=== PATIENT | female | born 1955 | race Caucasian/White ===

== ENCOUNTER 2019-01-29 06:05 | Inpatient (IN) | payer BC ==
--- NOTE | 2019-01-19 16:00 | HP ---
PREOPERATIVE HISTORY AND PHYSICAL: DATE OF ADMISSION/SURGERY: 01/29/19 SURGEON: Dr. Jazmine Paulino.* (DICTATED BY JOANN KENT) PROCEDURE: Left total hip arthroplasty. CHIEF COMPLAINT: Left hip pain. HISTORY OF PRESENT ILLNESS: Ms. Arriaga is a 63-year-old female with worsening left hip pain over the last 10 years. The pain is in the left groin and lateral hip and sometimes deep to the buttock, she describes it as a 6/10 pain. She has difficulty ambulating more than 2 blocks as well as severe pain with bending. She has tried anti-inflammatories, pain medication, physical therapy and other conservative treatments without relief and is seeking surgical intervention with Dr. Paulino at this time. PAST MEDICAL HISTORY: Hypertension, osteoarthritis, diverticulitis, GERD, hypothyroidism, and type 2 diabetes. She denies history of DVT or pulmonary embolism. PAST SURGICAL HISTORY: x2, gastric bypass, colon resection for diverticulitis and reverse colostomy. She denies anesthetic complications from these procedures. CURRENT MEDICATIONS: 1. Omeprazole 20 mg 1 tab by mouth daily. 2. Premier Thyroid 25 mg 1 tab by mouth daily. 3. Tramadol HCl 50 mg 1 to 2 tabs by mouth every 6 hours p.r.n. pain. 4. Gabapentin 100 mg 1 capsule 3 times daily. 5. Metoprolol succinate ER 25 mg 1 tab by mouth daily. 6. Metformin HCl ER 500 mg 1 tab by mouth daily. ALLERGIES: She is allergic to IV METRONIDAZOLE. FAMILY HISTORY: Positive for diabetes and heart disease, but no cancer. SOCIAL HISTORY: She lives with her partner, who will care for her postoperatively. 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 She consumed 2 alcoholic beverages per week and denies tobacco or recreational drug use. She is normally active with walking and gardening. REVIEW OF SYSTEMS: Fourteen systems were reviewed with the patient today and are positive for her left hip pain, but all other systems are negative today. PHYSICAL EXAMINATION GENERAL: She is a well-developed, well-nourished female, seated on exam table, in no acute distress, with appropriate affect. VITAL SIGNS: Height 60 inches, weight 155 pounds. Pulse is 66, blood pressure 132/80. HEENT: Normocephalic, atraumatic. Hearing and vision are grossly intact with extraocular movements intact. NECK: The trachea is midline and symmetrical. CHEST: Lungs are clear to auscultation. No wheezes, rales, or rhonchi appreciated. CARDIO: Regular rate and rhythm. Normal S1, S2. No murmurs, rubs, or gallops noted. ABDOMEN: Nondistended, nontender. Bowel sounds present. GENITOURINARY: Deferred. MUSCULOSKELETAL: Left lower extremity: Skin is pink, dry, and intact without abrasions or open wounds. She flexes the hip to 80 degrees with groin pain. She lacks 10 degrees from neutral and has no internal rotation. She has 10 degrees of external rotation with severe groin pain. She has 5/5 strength against resistance in 4 planes in the left ankle with intact sensation and a 2+ posterior tibialis pulse. IMAGING: X-rays perform previously are reviewed and show chqu-ct-uvur osteoarthritis with obliteration of the joint space, osteophyte formation and subchondral sclerosis. ASSESSMENT: Left hip severe end-stage arthritis. PLAN: Left total hip arthroplasty with Dr. Paulino. The patient's questions were answered and she would like to proceed. Dr. Paulino reviewed the potential risks and complications during today's visit. The patient will follow up postoperatively and pain medication will be dispensed postoperatively. JOANN KENT [id number]/CPS #: [id number] MTDD
[~2019-01-29 06:05] MED LIST: Buffered Lidocaine 1% SYRIN* 1 ML/SYRINGE INTRADERM ONE; Lactated Ringers 1000 ML Bag* 1,000 ML IV SCH; Tranexamic Acid 1,000 MG in NS 0.9% 50 ML* (outpatient use) IV SCH
--- OUTSIDE RECORDS SUMMARY | 2019-01-29 06:09 | XMS REPORT | Continuity of Care Document ---
:1955 External Reference #:[id number] Author Name Jazmine Paulino M.D. (transmitted by agent of provider Lexi Gusman) Address [address] [place] [address] [place] [address] Care Team Providers Name Role Phone Luis Armando Lakhani MD - Internal Care Team Information [employer] [phone] Medicine Problems Active Problems Provider Date Localized, primary osteoarthritis of the pelvic Jazmine Paulino M.D. Onset: 06/2018 region and thigh Social History Type Date Description Comments Sex Unknown ETOH Use Occasionally consumes alcohol Tobacco Use Start: Unknown Patient has never smoked Smoking Status Reviewed: 01/16/19 Patient has never smoked Exercise Type/Frequency Exercises regularly Allergies, Adverse Reactions, Alerts Active Allergies Reaction Severity Comments Date Metronidazole 12/05/2018 Inactive Allergies NKDA 04/17/2016 Medications Active Medications SIG Qnty Indications Ordering Provider Date Omeprazole 1 by mouth every Unknown 20mg Capsules day DR Devine Thyroid 1 by mouth every Unknown 25mg day take with Tablets the; elkin palomares Tramadol HCL 1-2 tablets by Unknown 50mg Tablets mouth every 6 hours as needed pain Gabapentin 1 capsule three Unknown 100mg Capsules times daily. Metoprolol Succinate 1 by mouth every Unknown ER day 25mg Tablets ER 24HR Metformin HCL ER (Mod) 1 by mouth every Unknown day 500mg Tablets ER 24HR Immunizations Description No Information Available Vital Signs Date Vital Result Comment 01/16/2019 1:53pm Height 60 inches 5'0" Weight 155.00 lb Heart Rate 66 /min BP Systolic 132 mmHg BP Diastolic 80 mmHg Body Temperature 97.3 F Pain Level 6 BMI (Body Mass Index) 30.3 kg/m2 12/05/2018 3:19pm Height 60 inches 5'0" Weight 154.00 lb Heart Rate 78 /min BP Systolic 130 mmHg BP Diastolic 82 mmHg Respiratory Rate 18 /min Pain Level 6 BMI (Body Mass Index) 30.1 kg/m2 Results Test Date Facility Test Result H/L Range Note Urinalysis Profile 01/16/2019 [facility] Urine Color Yellow [address] [place] [address] [phone] Urine Appearance Cloudy Urine Specific Wallace 1.012 Normal 1.010-1.030 Urine pH 6.0 Normal 5-9 Urine Urobilinogen Negative Negative Urine Ketones Negative Negative Urine Protein Negative Negative Urine Leukocytes Negative Negative Urine Blood Negative Negative Urine Nitrite Negative Negative Urine Bilirubin Negative Negative Urine Glucose Negative Negative CBC Auto 01/16/2019 [facility] White Blood 5.4 10^3/uL Normal 3.5-10.[address] [place] [address] [phone] Red Blood Count 4.56 10^6/uL Normal 3.70-4.87 Hemoglobin 12.0 g/dL Normal 12.0-16.0 Hematocrit 37 % Normal 35-47 Mean Corpuscular Volume 81 fL Normal 80-97 Mean Corpuscular Hemoglobin 26 pg Low 27-31 Mean Corpuscular HGB Conc 32 g/dL Normal 31-36 Red Cell Distribution Width 14 % Normal 10-15 Platelet Count 270 10^3/uL Normal 150-450 Mean Platelet Volume 8.7 fL Normal 7.4-10.4 Abs Neutrophils 3.3 10^3/uL Normal 1.5-7.7 Abs Lymphocytes 1.6 10^3/uL Normal 1.0-4.8 Abs Monocytes 0.4 10^3/uL Normal 0-0.8 Abs Eosinophils 0.1 10^3/uL Normal 0-0.6 Abs Basophils 0.0 10^3/uL Normal 0-0.2 Abs Nucleated RBC 0.0 10^3/uL Granulocyte % 61.0 % Lymphocyte % 28.8 % Monocyte % 7.3 % Eosinophil % 2.4 % Basophil % 0.5 % Nucleated Red Blood Cells % 0.1 Inr/Protime 01/16/2019 [facility] Inr 0.92 Normal 0.82-1.[address] [place] [address] [phone] Laboratory test 01/16/2019 [facility] Partial 31.3 Normal 26.0 -38.[address] [address] Time PTT [phone] Comp Metabolic 01/16/2019 [facility] Sodium 138 mmol/L Normal 135-[address] [place] [address] [phone] Potassium 4.0 mmol/L Normal 3.5-5.0 Chloride 102 mmol/L Normal 101-111 Co2 Carbon Dioxide 31 mmol/L Normal 22-32 Anion Gap 5 mmol/L Normal 2-11 Glucose 126 mg/dL High 70-100 Blood Urea Nitrogen 10 mg/dL Normal 6-24 Creatinine 0.64 mg/dL Normal 0.51-0.95 BUN/Creatinine Ratio 15.6 Normal 8-20 Calcium 9.6 mg/dL Normal 8.6-10.3 Total Protein 6.3 g/dL Low 6.4-8.9 Albumin 4.1 g/dL Normal 3.2-5.2 Globulin 2.2 g/dL Normal 2-4 Albumin/Globulin Ratio 1.9 Normal 1-3 Total Bilirubin 0.30 mg/dL Normal 0.2-1.0 Alkaline Phosphatase 69 U/L Normal 34-104 Alt 18 U/L Normal 7-52 Ast 15 U/L Normal 13-39 Egfr Non- 93.7 >60 Egfr 113.4 >60 2 Type & Screen 01/16/2019 [facility] Patient Blood Type A Positive [address] [place] [address] [phone] Antibody Screen NEGATIVE Urine Culture And 01/16/2019 [facility] Urine Culture SEE RESULT [address] [place] [address] [phone] 1 Standard intensity warfarin therapeutic range: 2.0-3.0 High intensity warfarin therapeutic range: 2.5-3.5 2 Because ethnic data is not always readily available, this report includes an eGFR for both -Americans and non- Americans. The National Kidney Disease Education Program (NKDEP) does not endorse the use of the MDRD equation for patients that are not between the ages of 18 and 70, are , have extremes of body size, muscle mass, or nutritional status, or are non- or non-. According to the National Kidney Foundation, irrespective of diagnosis, the stage of the disease is based on the level of kidney function: Stage Description GFR(mL/min/1.73 m(2)) 1 Kidney damage with normal or decreased GFR 90 2 Kidney damage with mild decrease in GFR 60-89 3 Moderate decrease in GFR 30-59 4 Severe decrease in GFR 15-29 5 Kidney failure <15 (or dialysis) 3 SEE RESULT BELOW Name: KETTY ARRIAGA : [address]: Jazmine Paulino MD Acct: [id number] Unit: [id number] AGE: 63 Location: [facility] Re01/16/19 SEX: F Status: REG REF SPEC: [id number] HERBIE: 01/16/19-[address] [facility] [address]: Jazmine Paulino MD REQ: [id number] RECD: 01/16/19 STATUS: ANITRA MARIA DR: Luis Armando Lakhani MD _ SOURCE: URINE SPDESC: ORDERED: Urine Culture QUERIES: Urine Source: Random Procedure Result Reported Site Urine Culture Final 01/17/19- 1614 ML No Growth (<1,000 CFU/mL) * ML - Main Lab . END OF REPORT DEPARTMENT OF PATHOLOGY, [address] [place] [address] Venkata Bhatt M.D. Director [facility] # [id number] Procedures Date Code Description Status 11/10/2010 [id number] Colonoscopy Completed Medical Devices Description No Information Available Encounters Type Date Location Provider Dx Diagnosis Office Visit 12/05/2018 Orthopedic Jazmine Paulino, M25.552 Pain in left hip 2:[facility] 6.12 Unilateral primary osteoarthritis, left hip Assessments Date Code Description Provider 01/16/2019 Esther5.552 Pain in left hip Jazmine Paulino M.D. 01/16/2019 M16.12 Unilateral primary osteoarthritis, left hip Jazmine Paulino M.D. 12/08/2018 M25.552 Pain in left hip Jazmine Paulino M.D. 12/08/2018 M16.12 Unilateral primary osteoarthritis, left hip Jazmine Paulino M.D. 12/05/2018 M25.552 Pain in left hip Jazmine Paulino M.D. 12/05/2018 M16.12 Unilateral primary osteoarthritis, left hip Jazmine Paulino M.D. Plan of Treatment Future Appointment(s):02/09/2019 11:15 am - Jazmine Paulino M.D. at [facility].01/29/2019 8:00 am - ARLEN Garvey at [facility].01/29/2019 8:00 am - Declan Lui PA-C at [facility].01/29/2019 8:00 am - Jazmine Paulino M.D. at [facility].01/16/2019 - Jazmine Paulino M.D.M25.552 Pain in left hipFollow up:Follow up: 10-14 days [id number] Unilateral primary osteoarthritis, left hip Functional Status Description No Information Available Mental Status Description No Information Available Referrals Description No Information Available
--- OUTSIDE RECORDS SUMMARY | 2019-01-29 06:09 | XMS REPORT | Continuity of Care Document ---
:1955 External Reference #:[id number] Author Name Susnaa Rodas Care Team Providers Name Role Phone Luis Armando Lakhani MD Primary Care Physician Unavailable Payers Date Identification Numbers Payment Provider Subscriber Policy Number: [id number] [employer] Ketty Saeed PayID: [id number] [address] [address] [place] [address] Problems Active Problems Provider Date Localized, primary osteoarthritis of the pelvic Jazminecorbin Paulino M.D. Onset: 06/2018 region and thigh Family History Date Family Member(s) Observation Comments General Diabetes General Heart Disease Social History Type Date Description Comments Sex Unknown Lives With Spouse Occupation Currently Working ETOH Use Occasionally consumes alcohol Tobacco Use Start: Unknown Patient has never smoked Smoking Status Reviewed: 12/05/18 Patient has never smoked Exercise Type/Frequency Exercises [...] every Unknown day 500mg Tablets ER 24HR History Medications Thiamine 1 by mouth every day Unknown - 12/04/2018 50mg Capsules Vitamin D3 Complete once daily Unknown - 12/04/2018 Tablets Winifrede-3 1 by mouth qd. Unknown - 12/04/2018 1000mg Capsules Toprol XL 1 by mouth every day Unknown - 12/04/2018 12.5mg Tablets ER 24HR Vital Signs Date Vital Result Comment 12/05/2018 3:19pm Height 60 inches 5'0" Weight 154.00 lb Heart Rate 78 /min BP Systolic 130 mmHg BP Diastolic 82 mmHg Respiratory Rate 18 /min Pain Level 6 BMI (Body Mass Index) 30.1 kg/m2 04/13/2015 8:58am Height 60 inches 5'0" Weight 136.00 lb BMI (Body Mass Index) 26.6 kg/m2 Procedures Date Code Description Status 03/25/2013 01775 EKG, Interpretation Only Completed Plan of Treatment 12/05/2018 - Jazmine Paulino M.D.M25.552 Pain in left hipNew Xrays:Hip Left 2 Views And Pelvis [address] - [address], Ordered: 12/05/18M16.12 Unilateral primary osteoarthritis, left hipFollow up:Follow up: Call Dr. Paulino's Network Systems Operator, [place], to schedule surgery.
[2019-01-29] MEDS ORDERED: ceFAZolin 2 GM PREMIX in ORs 2 GM/50 ML BAG ONE (06:22)
[2019-01-29] MEDS ORDERED: ROPIVACAINE 5 MG/ML 30 ML BTL (0.5%) ONE ×2 (07:07→07:57)
[2019-01-29] MEDS ORDERED: Midazolam* 1 MG/ML 2 ML VIAL (2 MG) ONE (07:08)
[2019-01-29] MEDS ORDERED: Bupivacaine 0.5% SDV PF* 30ML VIAL ONE (07:08)
[2019-01-29] MEDS ORDERED: Dexmedetomidine* 200 MCG/2 ML 2 ML VIAL ONE (07:08)
[2019-01-29] MEDS ORDERED: Lidocaine 2% PF * 5 ML VIAL ONE ×2 (07:08→07:09)
[2019-01-29] MEDS ORDERED: Propofol* 10 MG/ML 20 ML BTL ONE (07:31)
[2019-01-29] MEDS ORDERED: Rocuronium* 10 MG/ML VIAL ONE (07:31)
[2019-01-29] MEDS ORDERED: fentaNYL* 50 MCG/ML 2 ML VIAL (100 MCG VIAL) ONE (07:33)
[2019-01-29] MEDS ORDERED: Dexamethasone IV* 4 MG/ML 1 ML (4 MG) ONE (08:12)
[2019-01-29] MEDS ORDERED: Labetalol IV* 5 MG/ML 20 ML VIAL ONE ×2 (08:32→08:34)
[2019-01-29] MEDS ORDERED: Scopolamine 1.5 mg* PATCH ONE (08:32)
[2019-01-29] MEDS ORDERED: DiMENhydriNATE IV* 50 MG/ML VIAL IV PUSH PRN (09:23)
[2019-01-29] MEDS ORDERED: Naloxone* 0.4 MG/ML 1 ML VIAL IV PRN (09:23)
[2019-01-29] MEDS ORDERED: EPHEDrine (Pressors)* 50 MG/ML VIAL ONE (09:24)
[2019-01-29] MEDS ORDERED: HYDROmorphone INJ1* 1 MG/ML SYRINGE ONE ×2 (09:54→11:56)
[2019-01-29] MEDS ORDERED: Metoclopramide IV* 5 MG/ML 2 ML VIAL ONE (09:56)
[2019-01-29] MEDS ORDERED: Ketorolac INJ* 30 MG/ML 1 ML VIAL ONE (09:56)
[2019-01-29] MEDS ORDERED: Ondansetron INJ* 2 MG/ML VIAL ONE (09:56)
[2019-01-29] MEDS ORDERED: Phenylephrine 10 MG/ML VIAL* 1 ML VIAL ONE ×2 (10:08)
[2019-01-29] MEDS ORDERED: Acetaminophen IV 1GM/100ML * 100 ML ONE (10:15)
[2019-01-29] MEDS ORDERED: Morphine INJ* 2 MG/ML 1 ML SYRINGE (TWO MG - NEW SYRINGE VERSION) IV PRN (10:57)
[2019-01-29] MEDS ORDERED: Polyethylene Glycol 3350* 17 GM PACKET PO PRN (10:57)
[2019-01-29] MEDS ORDERED: diPHENhydraMINE IV* 50 MG/ML 1 ml VIAL (BENADRYL) IV PRN (10:57)
[2019-01-29] MEDS ORDERED: diPHENhydraMINE PO* 25 MG PO PRN (10:57)
[2019-01-29] MEDS ORDERED: Temazepam CAP* 15 MG PO PRN (10:57)
[2019-01-29] MEDS ORDERED: Ondansetron INJ* 2 MG/ML VIAL IV PRN (10:57)
[2019-01-29] MEDS ORDERED: Ondansetron ODT TAB* 4 MG PO PRN (10:57)
[2019-01-29] MEDS ORDERED: traMADol TAB* 50 MG PO PRN (10:57)
[2019-01-29] MEDS ORDERED: Magnesium Hydroxide LIQ* 30 ML UDC PO PRN (10:57)
[2019-01-29] MEDS ORDERED: oxyCODONE/Acetamin 5/325 MG* TAB PO PRN ×2 (10:57)
[2019-01-29] MEDS ORDERED: oxyCODONE TAB* 5 MG TAB ONE (11:05)
[2019-01-29] MEDS: oxyCODONE TAB* 5 MG TAB PO PRN ×4 (11:06→22:21)
[2019-01-29] MEDS: HYDROmorphone INJ1* 1 MG/ML SYRINGE IV PRN ×5 (11:57→12:28)
[2019-01-29] MEDS: Lactated Ringers 1000 ML Bag* 1,000 ML IV SCH ×2 (13:19→23:34)
--- NOTE | 2019-01-29 13:46 | CONS ---
HOSPITAL MEDICINE CONSULTATION REPORT: DATE OF CONSULT: 01/29/19 PROVIDER: Angeles Guzmán NP ATTENDING PHYSICIAN: Dr. Jazmine Paulino. CONSULTING PHYSICIAN: Dr. Ree Pearson (dictated by Angeles Guzmán NP). REASON FOR CONSULT: Co-management of chronic medical conditions. HISTORY OF PRESENT ILLNESS: Ms. Arriaga is a 63-year-old female with a past medical history significant for hypertension, osteoarthritis, GERD, hypothyroid and type 2 diabetes, who [place] [facility] left total hip arthroplasty with Dr. Paulino. Please see dictated H and P from JOANN Whittington for complete details. In brief, the patient had ongoing pain, failed conservative measures, therefore opted for an elective left total hip arthroplasty with Dr. Paulino. In the immediate postoperative period, the patient has no complaints. The patient denies any fever or chills. Denies any chest pain or shortness of breath. Denies any nausea, vomiting, diarrhea, or abdominal pain. Denies any gross hematuria or dysuria. Denies any focal weakness or sensory loss. Denies any rashes, lesions, or open sores. Denies any cough, hemoptysis, or shortness of breath. No nausea, vomiting, diarrhea, or abdominal pain. Denies any dysphagia, arthralgias, myalgias, rashes, lesions , open sores, psychosis, or anxiety. Due to the patient's chronic history of hypertension and hypothyroid and type 2 diabetes, [facility] Medicine was asked to see and consult the patient to help co-manage her chronic medical conditions. PAST MEDICAL HISTORY: Significant for: 1. Hypertension. 2. Osteoarthritis. 3. GERD. 4. Hypothyroid. 5. Type 2 diabetes. PAST SURGICAL HISTORY: 1. x2. 2. Gastric bypass. 3. Colon resection for diverticulitis. 4. Colostomy reversal. HOME MEDICATIONS: Include: 1. Omeprazole 20 mg p.o. daily. 2. [place] Thyroid 25 mg p.o. daily. 3. Tramadol 50 mg p.o. q.6 hours as needed for pain. 4. Gabapentin 100 mg p.o. t.i.d. 5. Metoprolol succinate ER 25 mg p.o. daily. 6. Metformin 500 mg p.o. daily. ALLERGIES: To FLAGYL. FAMILY HISTORY: Mother with a history of a pacemaker. Mother and father with type 2 diabetes. No reported history of cancer. SOCIAL HISTORY: The patient denies tobacco. She does report occasional alcohol use. Denies any illicit drug use. Surrogate decision maker in the event she is unable to make her own decisions is her daughter. She is a full code. REVIEW OF SYSTEMS: An 11-point review of systems was completed. All pertinent positives are mentioned in the HPI, otherwise were negative. PHYSICAL EXAM: General: At this time, Ms. Arriaga is alert and oriented, sitting on the stretcher in PACU, she is well developed, well nourished, she is in no acute distress. Vital Signs: lood pressure 141/67, heart rate 61, respirations 14, O2 saturation 100%, temperature was 97.3. HEENT: Head is atraumatic, normocephalic. Eyes: EOMs are intact. Sclerae anicteric and not pale. Oral mucosa appeared to be moist. Neck is supple. Lungs are clear to auscultation bilaterally. No wheezes, rales, or rhonchi. Cardiac: S1, S2. Regular rate and rhythm. No murmurs, rubs, or gallops. Abdomen is soft and nontender. Bowel sounds are present x4. Extremities: She is able to move all 4 extremities. There is no clubbing or cyanosis. Pedal pulses are +2 bilaterally. Neurologic: She is awake, alert, oriented x3. Speech is clear. Thought process is intact. There are no gross focal deficits. Skin: She does have a dressing that is dry, intact to her left hip. DIAGNOSTIC STUDIES/LAB DATA: CBC from 01/16/19, WBCs are 5.4, RBCs 4.56, hemoglobin 12.0, hematocrit is 37, platelet count was 270. INR was 0.92. BMP: Sodium 138, potassium 4.0, chloride 102, carbon dioxide was 21, anion gap was 5 , BUN was 10, creatinine 0.64, glucose 120. Oiwvm-hf-ozco glucose on 01/29/19 was 246. Calcium 9.6. Total bili was 0.30, ASTs were 15, ALTs were 18, alkaline phosphatase was 69. Urine was within normal limits. IMPRESSION AND PLAN: Ms. Arriaga is a 63-year-old female with a past medical history significant for hypertension, osteoarthritis, gastroesophageal reflux disease, hypothyroid and type 2 diabetes, who presented for an elective left total hip arthroplasty with Dr. Paulino. In the immediate postoperative period, the patient has no complaints. Hospital Medicine was asked to consult to help co-manage her chronic medical conditions. Our recommendations are as follows: 1. Status post left total hip arthroplasty. Management per Orthopedics. PT/ OT per Orthopedics. Bowel regimen per Orthopedics. Pain management per Orthopedics. 2. Type 2 diabetes. Continue metformin. Fingersticks BID 3. Hypertension. The patient should continue on metoprolol 25 mg p.o., hold for systolic blood pressure less than 110. 4. Gastroesophageal reflux disease. She should continue on omeprazole as previously prescribed. 5. FEN. She can have consistent carb diet. 6. Code status. She is a full code. 7. DVT prophylaxis. As per Orthopedics. TIME SPENT: Time spent on this consultation was 45 minutes, greater than half that time was spent at the bedside reviewing the events leading thus far to her hospitalization, performing physical exam, and reviewing my plan of care. I have discussed this with my attending, Dr. Ree Pearson, she is in agreement with my plan. ANGELES GUZMÁN, PATIENT SERVICE ASSOCIATE [id number]/[facility] #: [id number] NORM
[2019-01-29] MEDS ORDERED: Gabapentin CAP(*) 100 MG ONE (14:17)
[2019-01-29] MEDS ORDERED: Acetaminophen TAB* 325 MG ONE (14:17)
[2019-01-29] MEDS: Gabapentin CAP(*) 100 MG PO SCH ×2 (14:19→22:21)
[2019-01-29] MEDS: Acetaminophen TAB* 325 MG PO SCH ×2 (14:19→22:20)
--- NOTE | 2019-01-29 16:13 | PN ---
Progress Note - Progress Note Date of Service: 01/29/19 Note: Patient seen OOB in chair. She still has some numbness in the anterior left thigh, knee wanted to buckle with ambulation in room earlier. Her pain is mild in the knee. She denies dizziness, nausea or vomiting. Left LLE, active dorsiflexion ankle, has sensation in foot and lower leg, still diminished sensation thigh. 2+ pedal pulse s/p LTH arthroplasty.
[2019-01-29] MEDS: ceFAZolin 1 GM ADVAN(*) 1 GM in NS 0.9% 50 ML* 50 ML IVPB SCH (16:57)
--- NOTE | 2019-01-29 19:24 | OP ---
Operative Report - Blank - Operative Report Date of Operation: 01/29/19 Note: MARK KEITH 1955 Date Of Surgery: 01/29/19 Jazmine Paulino MD Rn Intern: Ancelmo DAVID did help throughout the procedure with preparation of the hip, wound retraction, manipulation of the hip, and wound closure. Anesthesiologist: Jarek Sam MD Anesthesia Type: Spinal Preoperative Diagnosis: Left severe degenerative osteoarthritis of the hip Postoperative Diagnosis: As above Procedure Performed: Left Total Hip Arthroplasty Complications: None Specimen: Femoral head and acetabular reamings sent to pathology. Hardware used: This is uncemented [place] total hip arthroplasty hardware for the femur a size 2 accolade II with 127 neck angle femoral component, for the acetabulum a size 48D trident II tritanium cluster hole shell, a 15 mm screw, for the insert a size 32 D trident X3 polyethylene insert, and for the femoral head a size 32 + 0 ceramic biolox V40 femoral head. Brief history/Indication: MARK KEITH was known in clinic and had a history of severe left hip pain. She failed conservative treatment with anti-inflammatories , pain pills, intra-articular injections and physical therapy. She elected to undergo left total hip arthroplasty due to continued pain and decreased quality of life. Radiographs showed severe end stage osteoarthritis of the hip with bone on bone contact. Informed consent was obtained from the patient. She understood the risks of surgery included but were not limited to: bleeding, infection, damage to nearby structures, intraoperative fracture, nerve palsy, failure of the hardware, early loosening, stiffness or loss of motion, dislocation, leg length discrepancy, anesthesia complications, stroke, heart attack, blood clot and . She wished to proceed. Intra-Operative findings: Intraoperatively the patient was noted to have severe loss of cartilage of the acetabulum and femoral head. Description of the Procedure: MARK KEITH was identified in the preanesthesia unit. Her left hip was marked as the correct operative side. Informed consent was signed and placed in the chart. The patient was taken to the operating room and placed under anesthesia without complication. A joseph catheter was placed. The patient was placed on the peg board with all bony prominences well padded. The left lower extremity was prepped and draped in the usual sterile fashion. Preoperative time-out was made to correctly identify the patient, side and site. Appropriate intraoperative antibiotics were given within one hour of incision. A standard posterior incision was made and carried sharply down to the lateral fascia. A new 10 blade was used to make an incision in the fascia in line with the skin incision. A charnley retractor was placed. The piriformis and conjoined tendons were identified and elevated off the posterolateral femur using electrocautery. These were tagged with number 5 Ethibond. Next electrocautery was used to make a posterolateral capsular flap and this was tagged with number 5 Ethibonds. The hip was carefully dislocated. Lesser trochanter to the center of the femoral head was measured at 53 mm. The oscillating saw was used to make the femoral neck cut. The femoral head was carefully removed. The femur was retracted anteriorly and the acetabular retractors were placed. Long-handled knife was used to sharply remove any remaining labrum from the acetabular rim. The acetabulum was sequentially reamed up to a size 48. A bleeding subchondral bone bed was obtained. A trial liner was placed and had excellent fit and stability. A 48D trident II tritanium cup with a 15 mm screw was placed and had excellent stability with appropriate anteversion and abduction angle. A size 32 D polyethylene liner was impacted into the acetabular shell. The liner was checked for stability and was stable. Next attention was turned to preparation of the femoral canal. A canal finder was used to enter the proximal femur. The femoral canal was sequentially broached up to a size 2 femoral broach trial. A trial neck and 32 + 0 trial femoral head was chosen. Lesser trochanter to center of the femoral head measurement was satisfactory. The hip was reduced and taken through a range of motion. The hip was stable in all positions with good soft tissue tension and appropriate leg lengths. The hip was dislocated and all trials were removed. The final implant chosen was a accolade II size 2 with 127 neck angle. This stem was impacted into the femoral canal without difficulty. The stem was stable with appropriate anteversion. The femoral head chosen was a 32 + 0 ceramic head. The head was impacted onto the femoral neck without difficulty. The final lesser trochanter to center of the femoral head measurement was satisfactory. The hip was reduced and taken through a range of motion. The hip was stable in all positions with good soft tissue tension and appropriate leg lengths. The hip was copiously irrigated with sterile saline. The previously tagged capsule and tendons were repaired to the posterolateral femur through two trochanteric drill holes. The lateral fascia layer was closed using number 1 vicryls. The rest of the incision was closed in a layered fashion using 0 and 2-0 vicryls. The skin was closed using 3-0 monocryl suture and Dermabond. Sterile adaptic, 4x4s and paper tape was used to cover the incision. The patients anesthesia was reversed without difficulty. She was taken to the PACU in stable condition. Intended weight-bearing will be as tolerated with posterior hip precautions.
[2019-01-29] MEDS: Magnesium Hydroxide LIQ* 30 ML UDC PO SCH (22:20)
[2019-01-29] MEDS: Docusate CAP* 100 MG PO SCH (22:20)
[2019-01-29] MEDS: Metoprolol Succinate XL TAB* 25 MG PO SCH (22:20)
[2019-01-30] MEDS: ceFAZolin 1 GM ADVAN(*) 1 GM in NS 0.9% 50 ML* 50 ML IVPB SCH ×2 (01:20→07:59)
[2019-01-30] MEDS: oxyCODONE TAB* 5 MG TAB PO PRN ×5 (02:18→18:41)
[2019-01-30 05:55] LABS: BUN/Creatinine Ratio 11.9 (8-20); Calcium 8.6 mg/dL (8.6-10.3); EGFR African American 124.6 (>60); EGFR Non-African American 102.9 (>60); Potassium 3.7 mmol/L (3.5-5.0)
[2019-01-30] MEDS: Acetaminophen TAB* 325 MG PO SCH ×3 (06:36→20:41)
[2019-01-30] MEDS: Thyroid TAB* 60 MG PO SCH (06:44)
[2019-01-30] MEDS: Vitamin THERAPEUTIC TAB PO SCH (07:56)
[2019-01-30] MEDS: Metoprolol Succinate XL TAB* 25 MG PO SCH (07:56)
[2019-01-30] MEDS: Gabapentin CAP(*) 100 MG PO SCH ×3 (07:57→20:21)
[2019-01-30] MEDS: Apixaban* 2.5 MG TAB PO SCH ×2 (07:57→20:21)
[2019-01-30] MEDS: Pantoprazole TAB * 40 MG TAB PO SCH (07:58)
[2019-01-30] MEDS: Magnesium Hydroxide LIQ* 30 ML UDC PO SCH ×2 (07:59→20:32)
[2019-01-30] MEDS: Docusate CAP* 100 MG PO SCH ×2 (07:59→20:21)
[2019-01-30] MEDS ORDERED: metFORMIN* 500 MG TAB PO SCH (08:00)
[2019-01-30] MEDS: Cyclobenzaprine TAB* 10 MG PO PRN ×2 (08:03→20:22)
--- NOTE | 2019-01-30 10:10 | PN ---
Subjective Date of Service: 01/30/19 Interval History: resting in bed. Reports that hip is sore but pain is currently controlled with pain medications. Denies chest pain or shortness of breath. Denies abd pain n/ v/d. Denies fever or chills. Family History: Unchanged from Admission Social History: Unchanged from Admission Past Medical History: Unchanged from Admission Objective Active Medications: Acetaminophen (Tylenol Tab*) 975 mg PO Q8HR [facility] Last Admin: 01/30/19 06:36 Dose: Not Given Apixaban (Eliquis*) 2.5 mg PO BID [facility] Last Admin: 01/30/19 07:57 Dose: 2.5 mg Bisacodyl (Dulcolax Supp*) 10 mg LA DAILY PRN PRN Reason: CONSTIPATION Cyclobenzaprine HCl (Flexeril Tab*) 10 mg PO Q6H PRN PRN Reason: SPASMS Last Admin: 01/30/19 08:03 Dose: 10 mg Diphenhydramine HCl (Benadryl Iv*) 25 mg IV Q6H PRN PRN Reason: PRURITIS Diphenhydramine HCl (Benadryl Po*) 25 mg PO Q6H PRN PRN Reason: PRURITIS Docusate Sodium (Colace Cap*) 100 mg PO BID [facility] Last Admin: 01/30/19 07:59 Dose: Not Given Gabapentin (Neurontin Cap(*)) 100 mg PO TID [facility] Last Admin: 01/30/19 07:57 Dose: 100 mg Lactated Ringer's (Lactated Ringers 1000 Ml Bag*) 1,000 mls @ 100 mls/hr IV PER RATE [facility] Last Admin: 01/29/19 23:34 Dose: 100 mls/hr Lactulose (Lactulose*) 30 ml PO BID PRN PRN Reason: CONSTIPATION Magnesium Hydroxide (Milk Of Magnesia Liq*) 30 ml PO BID [facility] Last Admin: 01/30/19 07:59 Dose: Not Given Magnesium Hydroxide (Milk Of Magnesia Liq*) 30 ml PO Q6H PRN PRN Reason: CONSTIPATION Metoprolol Succinate (Toprol Xl Tab*) 25 mg PO BID [facility] Last Admin: 01/30/19 07:56 Dose: 25 mg Morphine Sulfate (Morphine Inj (Syringe))*) 2 mg IV Q4H PRN PRN Reason: Pain - Unrelieved Multivitamins (Theragran Tab*) 1 tab PO DAILY [facility] Last Admin: 01/30/19 07:56 Dose: 1 tab Ondansetron HCl (Zofran Inj*) 4 mg IV Q6H PRN PRN Reason: NAUSEA Ondansetron HCl (Zofran Odt Tab*) 4 mg PO Q6H PRN PRN Reason: NAUSEA Oxycodone HCl (Roxycodone Tab*) 10 mg PO Q4H PRN PRN Reason: Pain - Breakthrough Last Admin: 01/30/19 06:35 Dose: 10 mg Oxycodone/Acetaminophen (Percocet 5/325 Tab*) 1 tab PO Q4H PRN PRN Reason: PAIN - MODERATE Oxycodone/Acetaminophen (Percocet 5/325 Tab*) 2 tab PO Q4H PRN PRN Reason: PAIN - SEVERE Pantoprazole Sodium (Protonix Tab*) 40 mg PO QAM [facility] Last Admin: 01/30/19 07:58 Dose: 40 mg Polyethylene Glycol/Electrolytes (Miralax*) 17 gm PO DAILY PRN PRN Reason: Constipation Temazepam (Restoril Cap*) 15 mg PO BEDTIME PRN PRN Reason: INSOMNIA Thyroid (Thyroid Tab*) 60 mg PO 0600 [facility] Last Admin: 01/30/19 06:44 Dose: 60 mg Tramadol HCl (Ultram*) 50 mg PO Q6H PRN PRN Reason: PAIN - MODERATE Vital Signs - 8 hr 01/30/19 01/30/19 01/30/19 02:18 02:42 05:07 Temperature 98.5 F Pulse Rate 85 Respiratory 16 16 14 Rate Blood Pressure 119/50 (mmHg) O2 Sat by Pulse 95 Oximetry 01/30/19 01/30/19 01/30/19 06:35 07:19 07:57 Temperature 99.1 F Pulse Rate 83 Respiratory 16 18 16 Rate Blood Pressure 131/52 (mmHg) O2 Sat by Pulse 95 Oximetry 01/30/19 08:03 Temperature Pulse Rate Respiratory 16 Rate Blood Pressure (mmHg) O2 Sat by Pulse Oximetry Oxygen Devices in Use Now: None Appearance: alert, no acute distress Eyes: No Scleral Icterus Ears/Nose/Mouth/Throat: Clear Oropharnyx, Mucous Membranes Moist Neck: NL Appearance and Movements; NL JVP, Trachea Midline Respiratory: Symmetrical Chest Expansion and Respiratory Effort Cardiovascular: NL Sounds; No Murmurs; No JVD, No Edema Abdominal: NL Sounds; No Tenderness; No Distention Extremities: No Edema Skin: No Rash or Ulcers Neurological: Alert and Oriented x 3 Nutrition: Taking PO's Result Diagrams: 01/30/19 05:13 Assess/Plan/Problems-Billing Assessment: - Patient Problems (1) Status post total hip replacement, left Current Visit: Yes Status: Acute Code(s): Z96.642 - PRESENCE OF LEFT ARTIFICIAL HIP JOINT SNOMED Code(s): 782202901761 Comment: Management per orthopedics PT/OT per orthopedics Pain management per ortho (2) Type 2 diabetes mellitus Current Visit: Yes Status: Acute Comment: -will hold metformin and can tresume at discharge - fingersticks BID (3) HTN (hypertension) Current Visit: Yes Status: Acute Code(s): I10 - ESSENTIAL (PRIMARY) HYPERTENSION SNOMED Code(s): 26000391 Comment: Continue metoprolol 25mg (4) GERD (gastroesophageal reflux disease) Current Visit: Yes Status: Acute Code(s): K21.9 - GASTRO-ESOPHAGEAL REFLUX DISEASE WITHOUT ESOPHAGITIS SNOMED Code(s): 474635496 Comment: continue omeprazole (5) Hypothyroid Current Visit: Yes Status: Acute Code(s): E03.9 - HYPOTHYROIDISM, UNSPECIFIED SNOMED Code(s): 33714116 Comment: [place] Thyroid 60 mg (6) DVT prophylaxis Current Visit: Yes Status: Acute Code(s): Z29.9 - ENCOUNTER FOR PROPHYLACTIC MEASURES, UNSPECIFIED SNOMED Code(s): 477524628 Comment: russ (7) Full code status Current Visit: Yes Status: Acute Code(s): Z78.9 - OTHER SPECIFIED HEALTH STATUS SNOMED Code(s): 075946511 Status and Disposition: disposition per orthopedics
--- NOTE | 2019-01-30 11:20 | PN ---
Progress Note - Progress Note Date of Service: 01/30/19 SOAP: Subjective: []patient is seen at bedside this am, states she is having moderate to severe hip pain, although reportedly did well with therapy today. She also c/o some residual numbness around the left knee. she denies SOB, CP, nausea, fever chills. Objective: [] Vital Signs Temp 99.1 F 01/30/19 07:19 Pulse 83 01/30/19 07:19 Resp 16 01/30/19 10:24 BP 131/52 01/30/19 07:19 Pulse Ox 95 01/30/19 07:19 Intake & Output 01/29/19 01/30/19 01/30/19 18:59 06:59 18:59 Intake Total 2600 2515 1330 Output Total 375 3000 900 Balance 2225 -485 430 Weight 149 lb Intake: IV Fluids 2400 950 980 LR 2400 950 980 IVPB 55 110 ABX - CEFAZOLIN 55 110 Oral 200 1510 240 Output: Urine 900 Rivera 375 3000 Laboratory Results - last 24 hr 01/29/19 01/30/19 11:51 05:13 Sodium 140 Potassium 3.7 Chloride 108 Carbon Dioxide 30 Anion Gap 2 BUN 7 Creatinine 0.59 Est GFR ( Amer) 124.6 Est GFR (Non-Af Amer) 102.9 BUN/Creatinine Ratio 11.9 Glucose 143 H POC Glucose (mg/dL) 246 H Calcium 8.6 Left hip dressing is dry and intact +Df left ankle diminished sensation around left knee 2+ DP pulse Assessment: []s/p left total hip arthroplasty POD #1 Plan: []PT/OT WBAT LLE posterior hip precautions Eliquis for DVT prophylaxis Probable discharge home 01/31
[2019-01-30 16:16] LABS: Hematocrit 27 % (35-47); Hemoglobin 9.2 g/dL (12.0-16.0); Platelet Count 227 10^3/uL (150-450)
[2019-01-31] MEDS: oxyCODONE TAB* 5 MG TAB PO PRN (01:57)
[2019-01-31] MEDS: Thyroid TAB* 60 MG PO SCH (06:13)
[2019-01-31] MEDS: Acetaminophen TAB* 325 MG PO SCH ×2 (06:15→14:09)
[2019-01-31 06:28] LABS: Hematocrit 28 % (35-47); Hemoglobin 9.4 g/dL (12.0-16.0); Mean Platelet Volume 8.2 fL (7.4-10.4); Platelet Count 234 10^3/uL (150-450)
[2019-01-31] MEDS: Cyclobenzaprine TAB* 10 MG PO PRN ×2 (07:47→13:45)
--- NOTE | 2019-01-31 08:51 | PN ---
Progress Note - Progress Note Date of Service: 01/31/19 SOAP: Subjective: Pt. is doing better today, pain controlled, wants to go home. Objective: Vital Signs: Temp Pulse Resp BP Pulse Ox 98.7 F 91 18 149/63 97 01/31/19 03:38 01/31/19 03:38 01/31/19 07:47 01/31/19 03:38 01/31/19 03:38 Laboratory Results - last 24 hr 01/30/19 01/30/19 01/31/19 05:13 20:45 06:21 Hgb 9.2 L 9.4 L Hct 27 L 28 L Plt Count 227 234 MPV 9.0 8.2 POC Glucose (mg/dL) 213 H LLE - dressing changed, incision c/d/i. distally nvi. Assessment: 63 yo POD 2 s/p LTHA Plan: wbat lle pt/ot eliquis plan d/c to home today with vns
[2019-01-31] MEDS ORDERED: Metoprolol Succinate XL TAB* 25 MG PO SCH (09:00)
[2019-01-31] MEDS: Magnesium Hydroxide LIQ* 30 ML UDC PO SCH (09:37)
[2019-01-31] MEDS: Pantoprazole TAB * 40 MG TAB PO SCH (09:38)
[2019-01-31] MEDS: Docusate CAP* 100 MG PO SCH (09:38)
[2019-01-31] MEDS: Apixaban* 2.5 MG TAB PO SCH (09:38)
[2019-01-31] MEDS: Vitamin THERAPEUTIC TAB PO SCH (09:38)
[2019-01-31] MEDS: Gabapentin CAP(*) 100 MG PO SCH ×2 (09:38→13:45)
--- NOTE | 2019-01-31 09:48 | PN ---
Subjective Date of Service: 01/31/19 Interval History: Pt examined at the bedside. She states she is dong well today. She denies chest pain and denies abdominal pain. Pt denies shortness of breathe. She denies lightheadedness. Review of systems denies fever, denies chills, denies chest pain, denies shortness of breathe, denies abdominal pain, denies nausea, denies vomiting, denies lightheadedness, review of 11 systems completed all others negative, Family History: Unchanged from Admission Social History: Unchanged from Admission Past Medical History: Unchanged from Admission Objective Active Medications: Acetaminophen (Tylenol Tab*) 975 mg PO Q8HR [facility] Last Admin: 01/31/19 06:15 Dose: Not Given Apixaban (Eliquis*) 2.5 mg PO BID [facility] Last Admin: 01/31/19 09:38 Dose: 2.5 mg Bisacodyl (Dulcolax Supp*) 10 mg ND DAILY PRN PRN Reason: CONSTIPATION Cyclobenzaprine HCl (Flexeril Tab*) 10 mg PO Q6H PRN PRN Reason: SPASMS Last Admin: 01/31/19 07:47 Dose: 10 mg Diphenhydramine HCl (Benadryl Iv*) 25 mg IV Q6H PRN PRN Reason: PRURITIS Diphenhydramine HCl (Benadryl Po*) 25 mg PO Q6H PRN PRN Reason: PRURITIS Docusate Sodium (Colace Cap*) 100 mg PO BID [facility] Last Admin: 01/31/19 09:38 Dose: 100 mg Gabapentin (Neurontin Cap(*)) 100 mg PO TID [facility] Last Admin: 01/31/19 09:38 Dose: 100 mg Lactated Ringer's (Lactated Ringers 1000 Ml Bag*) 1,000 mls @ 100 mls/hr IV PER RATE [facility] Last Admin: 01/29/19 23:34 Dose: 100 mls/hr Lactulose (Lactulose*) 30 ml PO BID PRN PRN Reason: CONSTIPATION Magnesium Hydroxide (Milk Of Magnesia Liq*) 30 ml PO BID [facility] Last Admin: 01/31/19 09:37 Dose: 30 ml Magnesium Hydroxide (Milk Of Magnesia Liq*) 30 ml PO Q6H PRN PRN Reason: CONSTIPATION Metoprolol Succinate (Toprol Xl Tab*) 25 mg PO DAILY [facility] Last Admin: 01/31/19 09:38 Dose: 25 mg Morphine Sulfate (Morphine Inj (Syringe))*) 2 mg IV Q4H PRN PRN Reason: Pain - Unrelieved Multivitamins (Theragran Tab*) 1 tab PO DAILY [facility] Last Admin: 01/31/19 09:38 Dose: 1 tab Ondansetron HCl (Zofran Inj*) 4 mg IV Q6H PRN PRN Reason: NAUSEA Ondansetron HCl (Zofran Odt Tab*) 4 mg PO Q6H PRN PRN Reason: NAUSEA Oxycodone HCl (Roxycodone Tab*) 10 mg PO Q4H PRN PRN Reason: Pain - Breakthrough Last Admin: 01/31/19 01:57 Dose: 10 mg Oxycodone/Acetaminophen (Percocet 5/325 Tab*) 1 tab PO Q4H PRN PRN Reason: PAIN - MODERATE Oxycodone/Acetaminophen (Percocet 5/325 Tab*) 2 tab PO Q4H PRN PRN Reason: PAIN - SEVERE Last Admin: 01/31/19 06:14 Dose: 2 tab Pantoprazole Sodium (Protonix Tab*) 40 mg PO QAM [facility] Last Admin: 01/31/19 09:38 Dose: 40 mg Polyethylene Glycol/Electrolytes (Miralax*) 17 gm PO DAILY PRN PRN Reason: Constipation Temazepam (Restoril Cap*) 15 mg PO BEDTIME PRN PRN Reason: INSOMNIA Thyroid (Thyroid Tab*) 60 mg PO 0600 [facility] Last Admin: 01/31/19 06:13 Dose: 60 mg Tramadol HCl (Ultram*) 50 mg PO Q6H PRN PRN Reason: PAIN - MODERATE Vital Signs - 8 hr 01/31/19 01/31/19 01/31/19 01:57 03:38 06:14 Temperature 98.7 F Pulse Rate 91 Respiratory 16 16 18 Rate Blood Pressure 149/63 (mmHg) O2 Sat by Pulse 97 Oximetry 01/31/19 01/31/19 01/31/19 06:15 06:16 07:47 Temperature Pulse Rate Respiratory 18 18 18 Rate Blood Pressure (mmHg) O2 Sat by Pulse Oximetry 01/31/19 01/31/19 01/31/19 09:02 09:38 09:40 Temperature Pulse Rate Respiratory 18 18 18 Rate Blood Pressure (mmHg) O2 Sat by Pulse Oximetry Oxygen Devices in Use Now: None Appearance: well nourished well developed, Eyes: No Scleral Icterus Ears/Nose/Mouth/Throat: NL Teeth, Lips, Gums Neck: NL Appearance and Movements; NL JVP Respiratory: Symmetrical Chest Expansion and Respiratory Effort, Clear to Auscultation Cardiovascular: NL Sounds; No Murmurs; No JVD, No Edema Abdominal: NL Sounds; No Tenderness; No Distention Extremities: No Edema Skin: - - dressing to left hip CDI Neurological: Alert and Oriented x 3 Result Diagrams: 01/31/19 06:21 01/30/19 05:13 Assess/Plan/Problems-Billing Assessment: 63 y/o female patient s/p LTHA with hx of DM, HTN, Hypothyroid presenting to Dr Henry service for a LTHA we were asked to consult for medical management - Patient Problems (1) DVT prophylaxis Current Visit: Yes Status: Acute Priority: High Comment: russ (2) Full code status Current Visit: Yes Status: Acute Priority: High (3) GERD (gastroesophageal reflux disease) Current Visit: Yes Status: Chronic Priority: Medium Comment: continue omeprazole (4) HTN (hypertension) Current Visit: Yes Status: Chronic Priority: High Comment: Continue metoprolol 25mg (5) Hypothyroid Current Visit: Yes Status: Chronic Priority: Medium Comment: [place] Thyroid 60 mg (6) Status post total hip replacement, left Current Visit: Yes Status: Acute Priority: High Comment: Management per orthopedics PT/OT per orthopedics Pain management per ortho (7) Type 2 diabetes mellitus Current Visit: Yes Status: Chronic Priority: High Comment: - will hold metformin and can resume at discharge - fingersticks BID Status and Disposition: disposition per orthopedics
[2019-01-31] MEDS ORDERED: Influenza VAC *QUAD* 2019-20* 0.5 ML SYRINGE IM ONE (10:40)
[2019-01-31] MEDS ORDERED: Bisacodyl SUPP* 10 MG SUPP PR PRN (10:57)
--- NOTE | 2019-01-31 11:23 | DS ---
Orthopedic Discharge Summary - Discharge Summary Date of Admission:01/29/19 Date of Discharge: 01/31/19 Date of Surgery: 01/29/19 Attending Orthopedic Provider: Jazmine Paulino MD Pre-operative Diagnosis: Left hip osteoarthritis Operative Procedure: Left total hip arthroplasty Disposition of Patient: Home Condition of Patient: Stable History: Ketty Arriaga is a 63 year old F with years of increasingly severe left hip pain. Patient has failed conservative management and has elected to undergo a left total hip replacement Hospital Course: Ketty was admitted to [facility] on 01/29/19. Patient underwent a left total hip arthroplasty without complication followed by a brief recovery in PACU and transfer to the Short Stay Surgical Unit in stable condition. Our hospitalist service, physical therapy and occupational therapy also participated in this patients care. Post-op day 1: patient was alert and in no acute distress. Dressing was clean, dry and intact. Operative extremity dorsiflexion and plantarflexion intact, sensation intact to light touch distally , DP2+. Patient had some trouble with pain control early on, however this improved throughout hospital stay. Post-op day two: dressing was changed, incision was clean, dry and intact. Patient was deemed to be medically and orthopedically stable for discharge. Physical therapy goals were met. Home Medications Medication Instructions Recorded Confirmed Type Ibuprofen TAB* [Advil TAB*] 200 mg PO Q6H PRN 03/23/13 01/29/19 History Metoprolol Succinate XL TAB* 25 mg PO BID 03/23/13 01/29/19 History [Toprol XL TAB*] Thyroid,Pork [[place] Thyroid] 60 mg PO QAM 03/23/13 01/29/19 History Gabapentin CAP(*) [Neurontin 100 100 mg PO TID 01/16/19 01/29/19 History mg CAP(*)] Metformin HCl [Metformin HCl ER] 500 mg PO QAM 01/16/19 01/29/19 History Omeprazole 20 mg PO QAM 01/16/19 01/29/19 History Magnesium 400 mg PO 01/29/19 History Apixaban* [Eliquis*] 2.5 mg PO BID tab 01/31/19 Rx Cyclobenzaprine TAB* [Flexeril 10 10 mg PO Q6H PRN tab 01/31/19 Rx MG TAB*] Docusate CAP* [Colace Cap*] 100 mg PO BID cap 01/31/19 Rx oxyCODONE/Acetamin 5/325 MG* 1 tab PO Q4H PRN tab 01/31/19 Rx [Percocet 5/325 TAB*] oxyCODONE/Acetamin 5/325 MG* 2 tab PO Q4H PRN tab 01/31/19 Rx [Percocet 5/325 TAB*] Discharge Instructions following Orthopedic Surgery: Activity: * Weight Bearing as tolerated * Continue physical therapy and occupational therapy exercises as shown Hip replacements: Continue Hip Precautions- do not cross legs or bend greater than 90 degrees/squat Wound care: * OK to shower on post-op day 3, no bathing, swimming, or submerging wound. * Use gentle soap, pat dry. Cover with gauze, ANTONELLA wrap or tape. * Visiting home nurse to do wound checks. Call Orthopedic office for: * Increased drainage * Redness * Increased pain * Fever Go to ER with shortness of breath or chest pain. Diet: * Regular diet * Increase fluids and fiber to prevent constipation. * Continue to use stool softeners, call office if no bowel motion within 48 hours. Medications See Home Medication List in your packet for medications that you should take after discharge. DVT Prophylaxis: Eliquis Dosin.5 mg, 1 tab every 12 hours x 30 days Pain Control: Percocet Dosin/325 mg 1-2 tabs by mouth every 4-6 hours as needed for pain. Maximum of 10 tabs per day. Please note that Percocet contains Tylenol (acetaminophen). Maximum daily dose of Tylenol is 4000 mg from all sources. Antibiotics are required prior to any dental work. FOLLOW UP: Follow up with Dr. Paulino Within 10-14 days, call for appointment Please call our office with any questions or concerns ([phone])
[2019-01-31 12:13] VITALS: BP 121/53
== END 2019-01-31 15:35 | disposition home health service (06) | DRG 301 ==
LOC: AA 06:05 → SSU 10:57
PROVIDERS: ADMIT Orthopaedic Surgery Adult Reconstructive Orthopaedic Surgery; ATTEND Orthopaedic Surgery Adult Reconstructive Orthopaedic Surgery
PROC: 0SRB04A Replacement of Left Hip Joint with Ceramic on Polyethylene Synthetic Substitute, Uncemented, Open Approach (ICD-10-PCS; principal; 2019-01-29 08:00)
DX: M16.12 Unilateral primary osteoarthritis, left hip (principal); I10 Essential (primary) hypertension; K57.90 Diverticulosis of intestine, part unspecified, without perforation or abscess without bleeding; K21.9 Gastro-esophageal reflux disease without esophagitis; E03.9 Hypothyroidism, unspecified; E11.9 Type 2 diabetes mellitus without complications; Z98.84 Bariatric surgery status; Z79.84 Long term (current) use of oral hypoglycemic drugs; Z79.899 Other long term (current) drug therapy; Z88.8 Allergy status to other drugs, medicaments and biological substances; Z83.3 Family history of diabetes mellitus; Z82.49 Family history of ischemic heart disease and other diseases of the circulatory system
CPT/HCPCS: 36415; 80048; 85014; 85018; 85049; 88304; 88311; 90686; A9270-GY; C1713; C1776; G8987-GO-CJ; G8988-GO-CJ; G8989-GO-CJ; J0690; J1100; J1170; J1885; J2250; J2405; J2704; J2765; J2795; J3010; J3490